=== PATIENT | female | born 1965 | race Native Hawaiian/Other Pacific Islander ===

== ENCOUNTER 2018-01-12 16:31 | Emergency (ER) | payer OTHER ==
[~2018-01-12] VITALS: Ht 170.2 cm; Wt 63.5 kg
[2018-01-12 17:18] LABS: PLATELET COUNT 330 K/uL (152-353)
[2018-01-12 17:22] LABS: POTASSIUM 3.3 mmol/L (3.6-5.2)
[2018-01-12 17:47] VITALS: BP 148/75; TEMP 98.9
== END 2018-01-12 17:52 | disposition home or self-care (01) ==
LOC: ED 16:31
DX: S00.96XA Insect bite (nonvenomous) of unspecified part of head, initial encounter (principal); W57.XXXA Bitten or stung by nonvenomous insect and other nonvenomous arthropods, initial encounter
CPT/HCPCS: 36415; 80053; 85027; 96365; 96375; 99283; J0696; J1885

== ENCOUNTER 2018-03-22 08:53 | Outpatient (CLI) | payer OTHER | END 2018-03-22 23:24 | disposition home or self-care (01) | LOC: MAMMO 08:53 | DX: Z12.31 Encounter for screening mammogram for malignant neoplasm of breast (principal) ==

== ENCOUNTER 2019-12-10 10:47 | Emergency (ER) | payer OTHER ==
[~2019-12-10] VITALS: Ht 170.2 cm; Wt 63.5 kg
[2019-12-10 10:55] VITALS: TEMP 97.5
[2019-12-10 11:28] LABS: PLATELET COUNT 349 K/uL (152-353)
[2019-12-10 11:37] LABS: POTASSIUM 3.8 mmol/L (3.6-5.2)
[2019-12-10 12:33] VITALS: BP 144/78
== END 2019-12-10 12:33 | disposition home or self-care (01) ==
LOC: ED 10:47
PROVIDERS: Emergency Medicine
DX: N23 Unspecified renal colic (principal); Z87.442 Personal history of urinary calculi
CPT/HCPCS: 36415; 80053; 81000; 85027; 96360; 96361; 96375; 99284; J1885

== ENCOUNTER 2020-10-22 09:47 | Emergency (ER) | payer OTHER ==
[~2020-10-22] VITALS: Ht 167.6 cm; Wt 72.6 kg
[2020-10-22 10:40] LABS: PLATELET COUNT 364 K/uL (152-353)
[2020-10-22 10:47] LABS: POTASSIUM 4.7 mmol/L (3.6-5.2)
[2020-10-22 12:20] VITALS: BP 10/62; TEMP 97.9
== END 2020-10-22 12:20 | disposition home or self-care (01) ==
LOC: ED 09:47
PROVIDERS: Family Medicine
DX: J06.9 Acute upper respiratory infection, unspecified (principal); J40 Bronchitis, not specified as acute or chronic; R05 Cough; Z20.822 Contact with and (suspected) exposure to COVID-19; F17.210 Nicotine dependence, cigarettes, uncomplicated
CPT/HCPCS: 36415; 80053; 85027; 87502; 87635; 94664; 96365; 99284; J0696; J1885; U0003

== ENCOUNTER 2020-12-01 09:02 | Emergency (ER) | payer OTHER ==
[~2020-12-01] VITALS: Ht 167.6 cm; Wt 73.0 kg
[2020-12-01 09:02] VITALS: TEMP 97.8
[2020-12-01 11:45] VITALS: BP 144/84
== END 2020-12-01 11:45 | disposition home or self-care (01) ==
LOC: ED 09:07
DX: S00.83XA Contusion of other part of head, initial encounter (principal); S80.01XA Contusion of right knee, initial encounter; S01.512A Laceration without foreign body of oral cavity, initial encounter; V89.2XXA Person injured in unspecified motor-vehicle accident, traffic, initial encounter; Y92.89 Other specified places as the place of occurrence of the external cause
CPT/HCPCS: 96374; 99284; J1885